=== PATIENT | male | born 1955 | race Caucasian/White ===

== ENCOUNTER → 2022-12-10 15:33 | Outpatient (CLI) | payer OTHER, SELFPAY ==
--- NOTE | ~2022-12-10 | XR_ITS ---
XR knee RT 3V DATE: 12/10/2022 15:50 INDICATION: Chronic right knee pain TECHNIQUE: AP, lateral, sunrise views COMPARISON: None FINDINGS: There is moderately severe loss of medial compartment joint space, with mild periarticular spurring. There is mild particular spurring at the lateral compartment and to a greater extent the pa tellofemoral compartment. Mild suprapatellar knee joint effusion is suggested. No fracture, dislocation, periosteal reaction or bone destruction, radiopaque intra-articular loose b bhupendra or chondrocalcinosis is detected. There is femoral, popliteal and trifurcation artery calcification consistent with atherosclerosis. IMPRESSION: Tricompartment osteophytosis, most prominent at the medial compartment Mild knee joint effusion Atherosclerosis Reviewed, dictated and finalized at location A. IMPRESSION: Tricompartment osteophytosis, most prominent at the medial compartm ent Mild knee joint effusion Atherosclerosis
== END ==
PROVIDERS: PCP Family Medicine Adolescent Medicine; Visit Provider Family Medicine Adolescent Medicine
DX: M25.461 Effusion, right knee (principal); I70.201 Unspecified atherosclerosis of native arteries of extremities, right leg
CPT/HCPCS: 73562

== ENCOUNTER 2023-12-18 09:36 | Outpatient (CLI) | payer MEDICARE, SELFPAY ==
--- NOTE | 2023-12-18 09:40 | ECHO_ITS ---
Patient Info Name: Acosta Denton Age: 68 years : 1955 Gender: Male Ht: 70 in Wt: 200 lbs BSA: 2.14 m2 HR: 67 bpm BP: 145 / 89 mmHg Technical Quality: Fair Exam Date: 12/18/2023 9:59 AM Exam Location: Echo Lab Patient Status: Outpatient Admit Date: 12/18/2023 Staff Ordering Physician: Lee Ann Montesinos APRN Plastic Parts Fabricator Trimmer: Kalpesh Flynn RDCS Attending Provider: Lee Ann Montesnios APRN Referring Physician: Jaguar SIGALA; Exam Type: CA echo doppler color flow Study Info Indications I35.8 - Other nonrheumatic aortic valve disorders Complete two-dimensional, color flow and Doppler transthoracic echocardiogram is performed. Summary 1. Complete two-dimensional, color flow and Doppler transthoracic echocardiogram is performed. 2. Left ventricular chamber dimension is normal. 3. Left ventricular systolic function is normal, estimated at 60-65%. 4. There is mild concentric increased left ventricular wall thickness. 5. The left ventricular diastolic function is normal. 6. E/e' 8 is minimally elevated. 7. The aortic valve is not well visualized. Cannot determine number of aortic valve leaflets. 8. There is severe aortic valve stenosis based on a peak velocity of 366 cm/s, mean gradient of 30 mmHg, and aortic valve area of 0.8 cm2. Consider OWEN if clinically indicated. 9. There is mild mitral valve regurgitation. 10. There is trace tricuspid valve regurgitation. 11. No pulmonary hypertension, estimated pulmonary arterial systolic pressure is 14 mmHg. Left Ventricle E/e' 8 is minimally elevated. Left ventricular chamber dimension is normal. Left ventricular systolic function is normal, estimated at 60-65%. There is mild concentric increased left ventricular wall thickness. The left ventricular diastolic function is normal. Right Ventricle Right ventricular systolic function is normal and with normal TAPSE 2.3 cm. Right ventricular chamber dimension is normal. Left Atria Left atrial chamber dimension is normal. Right Atria Right atrial chamber dimension is normal. Aortic Valve The aortic valve is not well visualized. Cannot determine number of aortic valve leaflets. There is severe aortic valve stenosis based on a peak velocity of 366 cm/s, mean gradient of 30 mmHg, and aortic valve area of 0.8 cm2. Consider OWEN if clinically indicated. There is no aortic valve regurgitation. Pulmonic Valve There is no pulmonic regurgitation. Mitral Valve There is no mitral valve stenosis. There is mild mitral valve regurgitation. Tricuspid Valve There is trace tricuspid valve regurgitation. No pulmonary hypertension, estimated pulmonary arterial systolic pressure is 14 mmHg. Pericardium/Pleural There is no pericardial effusion. Inferior Vena Cava Normal inferior vena cava with >50% collapse upon inspiration consistent with normal right atrial pressure, 5 mmHg. Aorta The aortic root size at the sinus of Valsalva is normal. Left Ventricular Outflow Tract Name Value Normal LVOT 2D LVOT Diameter 1.9 cm LVOT Doppler LVOT Peak Gradient 4 mmHg LVOT Mean Gradient 2 mmHg LVOT VTI 25 cm LVOT VTI/AV VTI Ratio
== END 2023-12-18 09:37 | disposition home or self-care (01) ==
LOC: ANHCARD 09:38
PROVIDERS: PCP Family Medicine Adolescent Medicine; Visit Provider Nurse Practitioner Family
DX: I08.0 Rheumatic disorders of both mitral and aortic valves (principal)
CPT/HCPCS: 93306

== ENCOUNTER 2024-02-27 14:19 | Outpatient (CLI) | payer MEDICARE, SELFPAY ==
--- NOTE | ~2024-02-27 | XR_ITS ---
XR chest 2V Ordering provider: Cristiano Cordova MD History: 68 years Male with . Posterior chest pain/ post aortic valve replacemen . Comparison: None. MEDIASTINUM: The cardiac silhouette is not enlarged. Postoperative changes. Valve prosthesis is noted. LUNGS: No pneumothorax. Blunting of the posterior costophrenic angles which may be due to atelectasis versus pneumonia versus minimal effusion. OTHER: No free air under the diaphragm. IMPRESSION: Blunting of the posterior costophrenic angles. Otherwise, No acute cardiopulmonary pathology. Reviewed, dictated and finalized at location A.
== END 2024-02-27 14:20 | disposition home or self-care (01) ==
LOC: CHSIMG 14:23
PROVIDERS: PCP Family Medicine Adolescent Medicine; Visit Provider Family Medicine Adolescent Medicine
DX: R07.81 Pleurodynia (principal)
CPT/HCPCS: 71046

== ENCOUNTER 2024-03-20 14:42 | Outpatient (RCR) | payer MEDICARE, SELFPAY ==
[2024-03-20 15:35] VITALS: PULSE 75
== END 2024-06-17 10:15 | disposition home or self-care (01) ==
LOC: ANHCPREHAB 14:42
PROVIDERS: PCP Family Medicine Adolescent Medicine; Visit Provider Internal Medicine Cardiovascular Disease
DX: Z95.2 Presence of prosthetic heart valve (principal)
CPT/HCPCS: 93798

== ENCOUNTER 2025-02-22 11:58 | Outpatient (CLI) | payer MEDICARE, SELFPAY ==
--- OUTSIDE RECORDS SUMMARY | 2025-02-22 14:05 | XMS_ITS | Clinical Summary ---
Author Organization [facility] Address [address] [facility] [place] [address] Care Team Providers Care Picking Supervisor Name Role Phone Angie Hunter NP Primary Care Provider [phone] Allergies Active Allergy Reactions Criticality Noted Date Comments Cat Dander Headache Low 01/29/2024 migraine Shellfish Containing Products Anaphylaxis,Swelling High 12/24/2023 Medications alfuzosin ER (UROXATRAL) 10 mg 24 hr tabletIndication s:benign prostatic hyperplasia with lower urinary tract sx Take 1 tablet (10 mg total) by mouth every evening 4 Active ubrogepant (Ubrelvy) 50 mg tabletIndication s:Migraine Take 1 tablet (50 mg total) by mouth once as needed for migraine May repeat dose once in 2 hours if no relief. Do not exceed 2 doses in 24 hours. Active MEN'S MULTI-VITAMIN ORALIndications: supplement Take 1 tablet by mouth every other day Active aspirin 81 mg chewable tablet Take 1 tablet (81 mg total) by mouth daily 4 Active acetaminophen (TYLENOL) 500 mg tablet Take 1 tablet (500 mg total) by mouth every 6 (six) hours as needed for pain Active hydroCHLOROthiaz betty (HYDRODIURIL) 25 mg tablet Take 1.5 tablets (37.5 mg total) by mouth daily Active tamsulosin (FLOMAX) 0.4 mg extended release capsule 1 capsule (0.4 mg total) daily Active omeprazole (PriLOSEC) 20 mg capsule Take 1 capsule (20 mg total) by mouth daily Active escitalopram (LEXAPRO) 10 mg tablet Take 1 tablet (10 mg total) by mouth daily Active sildenafiL (VIAGRA) 100 mg tablet Take 1 tablet (100 mg total) by mouth daily as needed for erectile dysfunction Active clonazePAM (KlonoPIN) 1 mg tablet Take 0.5 tablets (0.5 mg total) by mouth 2 (two) times a day as needed for anxiety Active Active Problems Patient Care Coordination No te Formatting of this note migh t be different from the original. Pcp george Problem Noted Date Diagnosed Date SOB (shortness of breath) 11/20/2024 S/P AVR (aortic valve replacement) 02/21/2024 Essential hypertension 02/21/2024 Chest pain 02/21/2024 RIK (obstructive sleep apnea) 02/21/2024 Acute post-operative pain 02/01/2024 Assessment & Plan (02/01/2024 9:52 AM CDT): - Sternal incision pain and back pain - continue schedule muscle relaxant - continue PRN dilaudid and oxycodone Thrombocytopenia 02/01/2024 Assessment & Plan (02/02/2024 10:42 AM CDT): - Low platelet count post cardiac surgery - likely in setting of surgery - Platelet 99 today from 103 - no overt signs of active bleeding - Daily CBC - consider blood transfusion if hgb < 7 and hemodynamically unstable - consider checking HIT if platelet level continue to drop Leucocytosis 02/01/2024 Assessment & Plan (02/02/2024 10:43 AM CDT): - WBC count 10.4 today from 14.6 post surgery - afebrile - Likely inflammatory reaction post cardiac surgery - daily CBC - consider UA and chest xray if WBC continue to rise Aortic stenosis, severe 01/30/2024 Assessment & Plan (02/02/2024 10:35 AM CDT): - 01/29 bio AVR (29mm inspiris resilia) and aortic root enlargement with hemishield patch - Aggressive pulmonary toilet, IS, acapella, OOBC - continue bowel regimen - PT/OT - monitor on telemetry - daily CBC/ BMP Heart disease, unspecified 01/29/2024 Abnormal finding of blood chemistry, unspecified 01/29/2024 Aortic valve stenosis 01/13/2024 Encounters Date Type Department Care Team Description 01/19/2025 Telephone [facility] Cardiology at [address] [place] [address] Serena Galeana MD 11/25/2024 Results Follow-Up [facility]iology [address] [facility] [address] [place], [place] [address] [address] Serena Galeana MD Transthoracic Echo (TTE) Complete W Doppler/CF 11/24/2024 3:00 PM CDT Ancillary Procedure [facility] Cardiology at [address] [address] Essential hypertension; S/P AVR (aortic valve replacement); SOB (shortness of breath) from Last 3 Months Surgical History Surgery Date Site/Laterality Comments HAND SURGERY COLONOSCOPY ORAL SURGERY CATARACT EXTRACTION W/ INTRAOCULAR LENS IMPLANT REFRACTIVE SURGERY Medical History Medical History Date Comments Aortic stenosis RIK on CPAP HTN (hypertension) Migraines Family History Medical History Relation Name Comments No Known Problems Brother No Known Problems Father No Known Problems Mother Relation Name Status Comments Brother Father Mother Social History Tobacco Use Types Packs/Day Years Used Date Smoking Tobacco: Never Passive Smoke Exposure: Never Smokeless Tobacco: Never Tobacco Cessation:Counseling Given: Not Answered OASIS D0700: Social Isolation Answer Da te Recorded Frequency of experiencing loneliness or isolatio n Never 03/06/2024 OASIS A1250: Transportation Answer Date Recorded Lack of Transportation (Medical) No 03/06/2024 Lack of Transportation (Non-Medical) No 03/06/2024 Patient Unable or Declines to Respond No 03/06/2024 OASIS B1300: Health Literacy Answer Yared e Recorded Frequency of needing help to read materials from doctor or pharmacy Sometimes 03/06/2024 AUDIT-C Answer Date Recorded Q1: How often do you have a drink containing alc ohol? 2-3 times a week 01/30/2024 Q2: How many drinks containi ng alcohol do you have on a typical day when you are drinking? 1 or 2 01/30/2024 Q3: How often do you have si x or more drinks on one occasion? Never 01/30/2024 Personal Safety Answer Date Recorded Have you ever been in or are you currently in a harmful physical or emotional relationship or is someone making you feel afraid or unsafe? 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 Gender Identity Not on file Sexual Orientation Not on file Obstetrics History Last Filed Vital Signs Vital Sign Reading Time Taken Comments Blood Pressure 110/70 11/20/2024 2:05 PM CDT Pulse 65 11/20/2024 2:05 PM CDT Temperature 36.7 C (98 F) 03/06/2024 1:38 PM CDT Respiratory Rate 18 03/06/2024 1:38 PM CDT Oxygen Saturation 96% 11/20/2024 2:05 PM CDT Inhaled Oxygen Concentration - - Weight 93.4 kg (206 lb) 11/20/2024 2:05 PM CDT Height 177.8 cm (5' 10) 11/20/2024 2:05 PM CDT Body Mass Index 29.56 11/20/2024 2:05 PM CDT Plan of Treatment Health Maintenance Due Date Last Done Comments Colon Cancer Screening-Colonoscopy 1955 Depression Screening 1955 Hepatitis C Screening 1955 DTaP/Tdap/Td Vaccine (1 - Tdap) 1965 Hepatitis B Screening 1972 Pneumococcal vaccine 65+ (1 of 2 - PCV) 1973 Zoster Vaccine (1 of 2) 2004 Well Visit 65+ 2019 Fall Risk Assessment 02/02/2025 02/03/2024 Covid-19 Vaccine (7 - 2024-2 6 season) 2025 04/16/2023, 03/27/2022, 11/07/2021, Additional history exists Influenza Vaccine (#1) 2025 , 03/27/2022, 04/10/2021, Additional history exists Medical Devices Implanted Type Area Laborer Beam House Device Identifier Shelf Expiration Date Model / Serial / Lot Getinge [employer] Patch Collagen Coated Double Velour Hemashield Gold 29w70ct Woven Polyester [id number] - [id number] - [id number] Implanted:Qty: 1 on 01/30/2024 by Lino Lassiter MD at [facility] N/A: Chest [employer] [id number] 09/07/2028 [id number] / [id number] [employer] Inspiris Resilia Leaflet Sewing Ring 29mm Valve Aortic Bovine [id number] - [id number] - [id number] Implanted:Qty: 1 on 01/30/2024 by Lino Lassiter MD at [facility] N/A: Heart [employer] [id number] 05/26/2027 [id number] / [id number] / Procedures Procedure Name Priority Date/Time Associated Diagnosis Comments TRANSTHORACIC ECHO (TTE) COMPLETE W DOPPLER/CF Routine 11/24/2024 3:07 PM CDT Essential hypertension S/P AVR (aortic valve replacement) SOB (shortness of breath) from Last 3 Months Results * Transthoracic Echo (TTE) Complete W Doppler/CF (11/24/2024 3:07 PM CDT) Estimated EF 70 % CONS SCIMAGE EF Mod BP 73 % CONS SCIMAGE Anatomical Region Laterality Modality Ultrasound 11/24/2024 3:07 PM CDT Narrative 11/24/2024 4:35 PM CDT [facility] Cardiology [address], [address], [place] [address] P:[phone] P:[phone] Echocardiographic Report Patient Name: ALFREDO DENTON L : 1955 Study Date: 11/24/2024 3:07:53 PM Gender: M Tech: Location: [facility] Ref Provider: SERENA GALEANA Height(Cm): 178 BSA: 2.15 Weight(Kg): 93.4 Heart Rate: 60 BP: 110 / 70 Quality: Good Order Provider: SERENA GALEANA PROCEDURES: Echocardiographic Report: Transthoracic echocardiogram with complete 2D, M-Mode, and color Doppler examination. With Strain Analysis. INDICATIONS: S/P AVR 29mm, I10 Essential (primary) hypertension, and R06.02 Shortness of breath. MEASUREMENTS: 2D/MM Value Range Doppler Value Range EF Mod BP 73 % [ 52 - 72 ] ILSA Vmax 2.55 cm2 [ 2.00 - 4.00 ] EF Teich MM 61 % [ 52 - 72 ] AV Mean PG 7 mmHg Estimated EF 70 % AV Peak Chas 1.72 m/s [ 1.00 - 1.70 ] LVIDd 2D 4.47 cm [ 4.20 - 5.80 ] AV Peak PG 12 mmHg LVIDd MM 4.87 cm [ 4.20 - 5.80 ] AV VTI 39.49 cm LVIDs 2D 2.85 cm [ 2.50 - 4.00 ] LVOT Diam 2.02 cm [ 1.70 - 2.10 ] LVIDs MM 3.29 cm [ 2.50 - 4.00 ] LVOT Peak Chas 1.11 m/s [ 0.70 - 1.10 ] LVPWd 2D 0.99 cm [ 0.60 - 1.00 ] LVOT VTI 25.87 cm LVPWd MM 0.84 cm [ 0.60 - 1.00 ] MV E Peak Chas 0.81 m/s [ 0.60 - 1.30 ] IVSd 2D 1.13 cm [ 0.60 - 1.00 ] MV A Peak Chas 0.66 m/s [ 1.00 - 1.20 ] IVSd MM 1.10 cm [ 0.60 - 1.00 ] MV Decel Time 210 msec [ 104 - 258 ] LA Dimension MM 3.06 cm [ 3.00 - 4.00 ] PV Peak Chas 1.44 m/s [ 0.40 - 0.80 ] AoR Diam MM 4.01 cm [ 3.10 - 3.70 ] TR Peak Chas 2.47 m/s [ 1.00 - 2.80 ] LA Volume Index 27 cc/m2 [ 16 - 34 ] TR Peak PG 24 mmHg RVSP 32.00 mmHg [ 10.00 - 36.00 ] Lateral E` 0.10 m/s [ 0.10 - 0.15 ] E/E` 8 2D/MM Value Range Doppler Value Range - FINDINGS: Interpretation Site: Exam was interpreted at [facility]. Left Ventricle: Normal left ventricular size. Normal global left ventricular systolic function. Impaired diastolic relaxation Grade I. Ejection fraction is measured at 73 %. Ejection Fraction is visually estimated to be 70 %. Global Longitudinal Strain is -17 %. Right Ventricle: Normal right ventricular size. Left Atrium: The left atrium is normal in size. Right Atrium: The right atrium is normal in size. Atrial Septum: Normal atrial septum. Mitral Valve: Normal appearance of the mitral valve. Trivial regurgitation of the mitral valve. Aortic Valve: Peak Velocity of 1.72 m/s. Peak gradient of 12.0 mmHg. Mean gradient of 7.0 mmHg. Valve area of 2.5 cm2. No aortic regurgitation. Gradients normal for valve type and size. Normal appearing aortic valve bioprosthesis. Tricuspid Valve: Normal appearance of the tricuspid valve. Estimated peak RVSP is 32 mmHg. Pulmonic Valve: Pulmonic valve not well visualized. Mild pulmonic regurgitation. Pericardium: Normal pericardium with no significant pericardial effusion. Aorta: Normal aortic root. IVC: Normal size and normal respiratory collapse consistent with normal right atrial pressure (<5 mmHg). Pulmonary Artery: Normal pulmonary artery size. CONCLUSIONS: Normal left ventricular size. Normal global left ventricular systolic function. Impaired diastolic relaxation Grade I. Ejection fraction is measured at 73 %. Ejection Fraction is visually estimated to be 70 %. Global Longitudinal Strain is -17 %. Peak Velocity of 1.72 m/s. Peak gradient of 12.0 mmHg. Mean gradient of 7.0 mmHg. Valve area of 2.5 cm2. No aortic regurgitation. Gradients normal for valve type and size. Normal appearing aortic valve bioprosthesis. Electronically Signed By: Steven Hernandez MD, [facility] 11/24/2024 4:34:24 PM CDT Procedure Note Steven Hernandez MD - 11/24/2024 [facility] Cardiology [address], [address], [place] [address] P:[phone] P:[phone] Echocardiographic Report Patient Name: ALFREDO DENTON L : 1955 Study Date: 11/24/2024 3:07:53 PM Gender: M Tech: Location: [facility]W Ref Provider: SERENA GALEANA Height(Cm): 178 BSA: 2.15 Weight(Kg): 93.4 Heart Rate: 60 BP: 110 / 70 Quality: Good Order Provider: SERENA GALEANA PROCEDURES: Echocardiographic Report: Transthoracic echocardiogram with complete 2D, M-Mode, and color Dopplerexamination. With Strain Analysis. INDICATIONS: S/P AVR 29mm, I10 Essential (primary) hypertension, and R06.02 Shortnessof breath. MEASUREMENTS: 2D/MM Value Range Doppler ValueRange EF Mod BP 73 % [ 52 - 72 ] ILSA Vmax 2.55cm2 [ 2.00 - 4.00 ] EF Teich MM 61 % [ 52 - 72 ] AV Mean PG 7mmHg Estimated EF 70 % AV Peak Chas 1.72m/s [ 1.00 - 1.70 ] LVIDd 2D 4.47 cm [ 4.20 - 5.80 ] AV Peak PG 12mmHg LVIDd MM 4.87 cm [ 4.20 - 5.80 ] AV VTI 39.49cm LVIDs 2D 2.85 cm [ 2.50 - 4.00 ] LVOT Diam 2.02 cm[ 1.70 - 2.10 ] LVIDs MM 3.29 cm [ 2.50 - 4.00 ] LVOT Peak Chas 1.11m/s [ 0.70 - 1.10 ] LVPWd 2D 0.99 cm [ 0.60 - 1.00 ] LVOT VTI 25.87cm LVPWd MM 0.84 cm [ 0.60 - 1.00 ] MV E Peak Chas 0.81m/s [ 0.60 - 1.30 ] IVSd 2D 1.13 cm [ 0.60 - 1.00 ] MV A Peak Chas 0.66m/s [ 1.00 - 1.20 ] IVSd MM 1.10 cm [ 0.60 - 1.00 ] MV Decel Time 210msec [ 104 - 258 ] LA Dimension MM 3.06 cm [ 3.00 - 4.00 ] PV Peak Chas 1.44m/s [ 0.40 - 0.80 ] AoR Diam MM 4.01 cm [ 3.10 - 3.70 ] TR Peak Chas 2.47m/s [ 1.00 - 2.80 ] LA Volume Index 27 cc/m2 [ 16 - 34 ] TR Peak PG 24mmHg RVSP 32.00 mmHg [ 10.00 - 36.00 ] Lateral E` 0.10 m/s [ 0.10 - 0.15 ] E/E` 8 2D/MM Value Range Doppler ValueRange - FINDINGS: Interpretation Site: Exam was interpreted at [facility]. Left Ventricle: Normal left ventricular size. Normal global left ventricular systolicfunction. Impaired diastolic relaxation Grade I. Ejection fraction is measured at 73 %.Ejection Fraction is visually estimated to be 70 %. Global Longitudinal Strain is -17 %. Right Ventricle: Normal right ventricular size. Left Atrium: The left atrium is normal in size. Right Atrium: The right atrium is normal in size. Atrial Septum: Normal atrial septum. Mitral Valve: Normal appearance of the mitral valve. Trivial regurgitation of the mitralvalve. Aortic Valve: Peak Velocity of 1.72 m/s. Peak gradient of 12.0 mmHg. Mean gradient of7.0 mmHg. Valve area of 2.5 cm2. No aortic regurgitation. Gradients normal for valve typeand size. Normal appearing aortic valve bioprosthesis. Tricuspid Valve: Normal appearance of the tricuspid valve. Estimated peak RVSP is 32mmHg. Pulmonic Valve: Pulmonic valve not well visualized. Mild pulmonic regurgitation. Pericardium: Normal pericardium with no significant pericardial effusion. Aorta: Normal aortic root. IVC: Normal size and normal respiratory collapse consistent with normal rightatrial pressure (<5 mmHg). Pulmonary Artery: Normal pulmonary artery size. CONCLUSIONS: Normal left ventricular size. Normal global left ventricular systolicfunction. Impaired diastolic relaxation Grade I. Ejection fraction is measured at 73 %.Ejection Fraction is visually estimated to be 70 %. Global Longitudinal Strain is -17 %. Peak Velocity of 1.72 m/s. Peak gradient of 12.0 mmHg. Mean gradient of7.0 mmHg. Valve area of 2.5 cm2. No aortic regurgitation. Gradients normal for valve typeand size. Normal appearing aortic valve bioprosthesis. Electronically Signed By: Steven Hernandez MD, [facility] 11/24/2024 4:34:24 PM CDT Serena Galeana MD CV ECHO PROCEDURES Final Result from Last 3 Months Insurance [facility] MEDICARE ADVANTAGE [facility] MEDICARE ADVANTAGE [facility] MEDICARE ADVANTAGE [address] [place] [id number] [facility] MEDICARE ADVANTAGE [facility] MEDIC[facility] ADVANTAGE Advance Directives For more information, please contact: [phone] * Full Code (Latest Code Status on File) Date Activated Date Inactivated Comments 01/30/2024 5:16 PM 02/03/2024 5:29 PM * Full Code Date Activated Date Inactivated Comments 01/23/2024 3:56 PM 01/23/2024 10:53 PM Care Teams Picking Supervisor Relationship Specialty Start Date End Date Angie Hunter NP [address] [place] [address] PCP - General Nurse Practitioner 11/20/24
[2025-02-22 18:42] LABS: Alanine Aminotransferase 25 U/L (6-50); Albumin Level 3.9 g/dL (3.5-5.1); Alkaline Phosphatase 62 U/L (38-126); Anion Gap 4 mmol/L (4-12); Aspartate Amino Transferase 63 U/L (17-59); Bilirubin,Total 0.5 mg/dL (0.2-1.3); Blood Urea Nitrogen 16 mg/dL (9-20); Calcium 8.8 mg/dL (8.4-10.2); Carbon Dioxide 30 mmol/L (22-30); Chloride 102 mmol/L (98-107); Cholesterol 195 mg/dL (0-200); Estimated Glomerular Filt Rate > 60; Glucose 90 mg/dL (65-110); HDL Direct 35 mg/dL; Potassium 3.6 mmol/L (3.4-5.0); Sodium 136 mmol/L (137-145); Total Protein 6.8 g/dL (6.3-8.2); Triglycerides 137 mg/dL (<150)
[2025-02-22 18:55] LABS: Hematocrit 46.0 % (42.0-52.0); Hemoglobin 15.2 g/dL (14.0-18.0); Mean Corpuscular HGB Conc 33.0 g/dl (32-36); Mean Corpuscular Hemoglobin 29.6 pg (26-34); Mean Corpuscular Volume 89.7 fl (80-100); Platelet Count Result 175 k/mm3 (150-375); Red Blood Count 5.13 M/mm3 (4.6-6.20); White Blood Count 5.8 K/mm3 (4.5-10.0)
[2025-02-22 19:18] LABS: Prostate Specific Antigen 2.4 ng/mL (< OR = 4.0); Thyroid Stimulating Hormone 1.500 uIU/mL (0.465-4.680)
== END 2025-02-22 11:59 | disposition home or self-care (01) ==
PROVIDERS: PCP Nurse Practitioner Adult Health; Visit Provider Nurse Practitioner Adult Health
DX: R42 Dizziness and giddiness (principal); I10 Essential (primary) hypertension; Z12.5 Encounter for screening for malignant neoplasm of prostate
CPT/HCPCS: 36415; 80053; 80061; 84153; 84443; 85027; G0103

== ENCOUNTER 2025-03-10 12:53 | Outpatient (CLI) | payer MEDICARE, SELFPAY ==
--- NOTE | ~2025-03-10 | CT_ITS ---
EXAMINATION: CT brain wo con DATE: 03/10/2025 13:17 INDICATION: Dizziness. Migraine headache. TECHNIQUE: Computed tomography (CT) of the head was performed without intravenous contrast. The mA was adjusted according to patient size. Iterative reconstruction technique was employed. The dose-length product was 681.00 mGy-cm. COMPARISON: None FINDINGS: There are scattered areas of low attenuation in the cerebral white matter, which is within normal limits for the patient's age. 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 There is no intracranial hemorrhage, acute infarction, or abnormal intracranial mass lesion. The ventricles are normal in size. There is mucosal thickening in the paranasal sinuses. The mastoid air cells are normal. There are likely changes of right ocular lens replacement surgery. IMPRESSION: 1. 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 Reviewed, dictated and finalized at location E.
--- OUTSIDE RECORDS SUMMARY | 2025-03-10 13:00 | XMS_ITS | Clinical Summary ---
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 Gender Identity Not on file Sexual Orientation [...] history exists Medical Devices Implanted Type Area Home Energy Inspector Device Identifier Shelf Expiration Date Model / Serial / Lot [employer] Patch Collagen Coated Double Velour Hemashield Gold 33x53iv Woven Polyester [id number] - [id number] - [id number] Implanted:Qty: 1 on 01/30/2024 by Lino Lassiter MD at [facility] N/A: Chest [employer] [id number] 09/07/2028 [id number] / [id number] [employer] Inspiris Resilia Leaflet Sewing Ring 29mm Valve Aortic Bovine [id number] - [id number] - [id number] Implanted:Qty: 1 on 01/30/2024 by Lino Lassiter MD at [facility] N/A: Heart [employer] [id number] 05/26/2027 [id number] / [id number] / Insurance [address] MEDICARE ADVANTAGE Member Subscriber Plan / Payer (Ef fective 2023-Present) Name:Acosta Denton Relation to Subscriber:Self Name:Acosta Denton Payer ID:[id number] (NAIC) Type:[facility] MEDIC[facility] Address: [place] [id number] [place] [id number] MEDICARE ADVANTAGE [address] [facility] MEDICARE ADVANTAGE [facility] MEDICARE ADVANTAGE Advance Directives For more information, please contact: [phone] * Full Code (Latest Code Status on File) Date Activated Date Inactivated Comments 01/30/2024 5:16 PM 02/03/2024 5:29 PM * Full Code Date Activated Date Inactivated Comments 01/23/2024 3:56 PM 01/23/2024 10:53 PM Care Teams Soft Boarder Relationship Specialty Start Date End Date Angie Hunter NP [address] [place] [id number] PCP - General Nurse Practitioner 11/20/24
== END 2025-03-10 12:54 | disposition home or self-care (01) ==
PROVIDERS: PCP Nurse Practitioner Adult Health; Visit Provider Nurse Practitioner Adult Health
DX: R42 Dizziness and giddiness (principal); Z86.73 Personal history of transient ischemic attack (TIA), and cerebral infarction without residual deficits
CPT/HCPCS: 70450